=== PATIENT | male | born 1950 | race Caucasian/White ===

== ENCOUNTER 2017-11-01 11:00 | Inpatient (IN) | payer OTHER ==
[~2017-11-01] VITALS: Ht 162.6 cm; Wt 97.5 kg
[~2017-11-01 11:00] MED LIST: AUTOJECT 21 EACH; AUTOJECT 21 EACH SQ; CLONAZEPAM1 MG PO; DOCUSATE SODIU100 MG PO; FORTAMET1000 MG PO; GLIPIZIDE ER10 MG PO; PERCOCET 5-3251 EACH PO
[2017-11-04] MEDS ORDERED: LISINOPRIL-HCT1 EACH PO (11:57)
[2017-11-11] MEDS ORDERED: DOCUSATE SODIU100 MG PO (11:25)
[2017-11-11] MEDS ORDERED: GABAPENTIN800 MG PO (11:25)
[2017-11-11] MEDS ORDERED: ENSURE ORIGINA237 ML PO (11:26)
[2017-11-11] MEDS ORDERED: AMOX-CLAV 875-1 EACH PO (11:27)
[2017-11-11] MEDS ORDERED: PERCOCET 5-3251 EACH PO (11:27)
[2017-11-11] MEDS ORDERED: CLONAZEPAM1 MG PO (11:27)
== END 2017-11-11 14:03 | disposition home or self-care (01) | DRG 460 ==
LOC: O/R 11-10 05:10 → PED 11-10 05:10 → SURH 11-10 09:15 → PED 11-10 16:32
PROVIDERS: Orthopaedic Surgery Orthopaedic Surgery of the Spine
PROC: 00NY0ZZ Release Lumbar Spinal Cord, Open Approach (ICD-10-PCS; 2017-11-10)
PROC: 0ST40ZZ Resection of Lumbosacral Disc, Open Approach (ICD-10-PCS; 2017-11-10)
PROC: 07DS3ZZ Extraction of Vertebral Bone Marrow, Percutaneous Approach (ICD-10-PCS; 2017-11-10)
PROC: 0SG30AJ Fusion of Lumbosacral Joint with Interbody Fusion Device, Posterior Approach, Anterior Column, Open Approach (ICD-10-PCS; principal; 2017-11-10 13:00)
DX: M48.07 Spinal stenosis, lumbosacral region (principal); M47.16 Other spondylosis with myelopathy, lumbar region; M51.17 Intervertebral disc disorders with radiculopathy, lumbosacral region; M43.17 Spondylolisthesis, lumbosacral region; E11.9 Type 2 diabetes mellitus without complications; I10 Essential (primary) hypertension

== ENCOUNTER 2017-12-17 10:30 | Emergency (ER) | payer OTHER ==
[~2017-12-17] VITALS: Ht 162.6 cm; Wt 98.0 kg
[~2017-12-17 10:30] MED LIST changes: +AMOX-CLAV 875-1 EACH PO; +ENSURE ORIGINA237 ML PO; +GABAPENTIN800 MG PO; +LISINOPRIL-HCT1 EACH PO
[2017-12-17] MEDS ORDERED: LEVAQUIN750 MG PO (15:37)
== END 2017-12-17 18:02 | disposition home or self-care (01) ==
LOC: ER 10:30
DX: T81.4XXA Infection following a procedure, initial encounter (principal); B99.8 Other infectious disease

== ENCOUNTER 2017-12-20 15:13 | Inpatient (IN) | payer OTHER ==
[~2017-12-20] VITALS: Ht 162.6 cm; Wt 97.5 kg
[~2017-12-20 15:13] MED LIST changes: +LEVAQUIN750 MG PO
[2017-12-20] MEDS ORDERED: PERCOCET 10-321 EACH PO (15:28)
[2017-12-28] MEDS ORDERED: CEFAZOLIN2 GM/50 M1 IV (07:54)
== END 2017-12-28 16:11 | disposition home health service (06) | DRG 464 ==
LOC: ER 15:13 → SEC-K 16:05 → MEDI 16:05
PROVIDERS: Orthopaedic Surgery Orthopaedic Surgery of the Spine
PROC: BR29ZZZ Computerized Tomography (CT Scan) of Lumbar Spine (ICD-10-PCS; 2017-12-20)
PROC: BR39Y0Z Magnetic Resonance Imaging (MRI) of Lumbar Spine using Other Contrast, Unenhanced and Enhanced (ICD-10-PCS; 2017-12-21)
PROC: 05H433Z Insertion of Infusion Device into Left Innominate Vein, Percutaneous Approach (ICD-10-PCS; 2017-12-22)
PROC: 0JB70ZZ Excision of Back Subcutaneous Tissue and Fascia, Open Approach (ICD-10-PCS; principal; 2017-12-22 13:00)
PROC: 0JB70ZZ Excision of Back Subcutaneous Tissue and Fascia, Open Approach (ICD-10-PCS; 2017-12-24)
DX: M46.27 Osteomyelitis of vertebra, lumbosacral region (principal); L03.312 Cellulitis of back [any part except buttock and flank]; T81.4XXA Infection following a procedure, initial encounter; B37.89 Other sites of candidiasis; L02.212 Cutaneous abscess of back [any part, except buttock and flank]; Y83.8 Other surgical procedures as the cause of abnormal reaction of the patient, or of later complication, without mention of misadventure at the time of the procedure; Y92.098 Other place in other non-institutional residence as the place of occurrence of the external cause; I10 Essential (primary) hypertension; E11.42 Type 2 diabetes mellitus with diabetic polyneuropathy; M48.07 Spinal stenosis, lumbosacral region; M43.17 Spondylolisthesis, lumbosacral region; M51.17 Intervertebral disc disorders with radiculopathy, lumbosacral region; B95.61 Methicillin susceptible Staphylococcus aureus infection as the cause of diseases classified elsewhere
CPT/HCPCS: 72149

== ENCOUNTER 2018-03-10 18:13 | Emergency (ER) | payer OTHER ==
[~2018-03-10] VITALS: Ht 162.6 cm; Wt 97.5 kg
[~2018-03-10 18:13] MED LIST changes: +CEFAZOLIN2 GM/50 M1 IV; +PERCOCET 10-321 EACH PO
[2018-03-10] MEDS ORDERED: LISINOPRIL10 MG (18:22)
== END 2018-03-10 20:52 | disposition home or self-care (01) ==
LOC: ER 18:13
DX: L08.89 Other specified local infections of the skin and subcutaneous tissue (principal); B95.2 Enterococcus as the cause of diseases classified elsewhere